=== PATIENT | female | born 1940 | race Caucasian/White ===

== ENCOUNTER 2024-06-13 12:28 | Outpatient (CLI) | payer OTHER, SELFPAY | END 2024-06-13 12:29 | disposition home or self-care (01) | LOC: NFLDREF 06-14 14:53 | PROVIDERS: PCP Family Medicine; Referring Provider Family Medicine; Visit Provider Family Medicine | DX: N39.0 Urinary tract infection, site not specified (principal); B96.89 Other specified bacterial agents as the cause of diseases classified elsewhere | CPT/HCPCS: 87086; 87186 ==

== ENCOUNTER 2024-06-23 10:00 | Outpatient (CLI) | payer OTHER, SELFPAY | END 2024-06-23 10:01 | disposition home or self-care (01) | LOC: NFLDREF 06-25 07:37 | PROVIDERS: PCP Family Medicine; Referring Provider Family Medicine; Visit Provider Physician Assistant Medical | DX: N30.00 Acute cystitis without hematuria (principal) | CPT/HCPCS: 87086; 87186 ==

== ENCOUNTER 2024-09-29 12:27 | Outpatient (CLI) | payer OTHER, SELFPAY | END 2024-09-29 12:28 | disposition home or self-care (01) | LOC: NFLDREF 10-06 01:12 | PROVIDERS: PCP Family Medicine; Referring Provider Family Medicine | DX: R39.9 Unspecified symptoms and signs involving the genitourinary system (principal); N39.0 Urinary tract infection, site not specified; N30.00 Acute cystitis without hematuria | CPT/HCPCS: 87086 ==